=== PATIENT | male | born 1940 ===

== ENCOUNTER 2019-02-12 06:04 | Day surgery (SDC) | payer OTHER ==
[~2019-02-12 06:04] MED LIST: COZAAR25 MG PO; DAFLONEX-XL TA1 EACH PO; FINASTERIDE5 MG PO; METROPOLOL PO; TIROSINT100 MCG PO; VITD PO; ZOCOR20 MG PO; [UNRECOGNIZED DRUG - OTHER] PO
[2019-02-12] MEDS ORDERED: KEFLEX500 MG PO (10:17)
[2019-02-12] MEDS ORDERED: ULTRACET PO (10:18)
== END 2019-02-12 12:20 | disposition home or self-care (01) ==
LOC: CIR.AMB 06:04
DX: D17.22 Benign lipomatous neoplasm of skin and subcutaneous tissue of left arm (principal)